=== PATIENT | male | born 2005 | race Caucasian/White ===

== ENCOUNTER 2024-03-11 17:11 | Emergency (ER) | payer SELFPAY ==
[2024-03-11 17:23] VITALS: BP 141/87; PULSE 98; RESP 16; TEMP 37.2; O2SAT 99
--- NOTE | 2024-03-11 18:20 | ED.EAR ---
HPI - Ear Problem General Chief complaint: Ear Stated complaint: Right Ear Irritation Time Seen by Provider: 03/11/24 17:54 Source: patient and RN notes reviewed Mode of arrival: ambulatory Limitations: no limitations History of Present Illness HPI Narrative: Patient presents today complaining of right ear muffling after swimming yesterday. Denies pain. Today decreased hearing in the left. He has used some [id number] drops without relief. Denies any sick symptoms. Related Data Allergies Allergy/AdvReac Type Severity Reaction Status Date / Time No Known Allergies Allergy Verified 03/11/24 17:25 Review of Systems Review of Systems: CONSTITUTIONAL: Denies body aches, fever, chills, or sweats. EYES: Denies visual changes, redness, or discharge. ENT: Denies rhinorrhea, congestion, sore throat, or otalgia. + bilateral decreased hearing CARDIOVASCULAR: Denies chest pain, palpitations, or edema. RESPIRATORY: Denies cough or dyspnea. GASTROINTESTINAL: Denies abdominal pain, nausea, vomiting, or diarrhea. GENITOURINARY: Denies dysuria or hematuria. SKIN: Denies rash, itching, or wounds. MUSCULOSKELETAL: Denies back pain, joint pain, or myalgia. NEUROLOGIC: Denies headache, numbness, tingling, or weakness. PSYCH: Denies depression or anxiety. PMFSH Comments At time of signature, I have reviewed and agree with nursing past medical, surgical, social and family history unless otherwise noted. Please see nursing chart for further information. There is no relevant family history pertinent to the presenting complaint Exam Narrative: GENERAL: Well-appearing, well-nourished, and in no acute distress. HEAD: Normocephalic, atraumatic. EYES: EOMI. No redness or drainage. Conjunctivae normal. ENT: Mucous membranes pink and moist. Nares clear. No rhinorrhea. Left TM normal with moderate amount of cerumen in the canal. Right TM occluded with large amount of soft cerumen in the canal. Canal appears normal. No movement or tragal tenderness. NECK: Normal AROM. CHEST: No respiratory distress. EXTREMITIES: Normal range of motion. No edema. SKIN: Warm, dry, no rash. Capillary refill normal. Normal skin turgor. NEURO: No focal deficits. Alert and oriented x3. Gait steady. PSYCH: Normal affect. No signs of depression or anxiety. Course Course Level of Care: Express Care Visit Vital Signs Vital signs: Vital Signs Temperature 99 F 03/11/24 17:23 Pulse Rate 98 03/11/24 17:23 Respiratory Rate 16 03/11/24 17:23 Blood Pressure 141/87 H 03/11/24 17:23 Pulse Oximetry 99 03/11/24 17:23 Oxygen Delivery Room Air 03/11/24 17:23 Temperature 99 F 03/11/24 17:23 Pulse Rate 98 03/11/24 17:23 Respiratory Rate 16 03/11/24 17:23 Blood Pressure 141/87 H 03/11/24 17:23 Pulse Oximetry 99 03/11/24 17:23 Oxygen Delivery Room Air 03/11/24 17:23 Reviewed Procedures Ear Wax Removal Right Ear: Ear Wax Removal Date: 03/11/24 Ear Wax Removal Time: 18:21 TM Examination: TM(s) intact, normal appearance Ear Canal Exam: atraumatic Patient Tolerated Procedure: well Complications: no problems Technique: ear canal irrigated Additional Comments: Irrigated with water and small amount of peroxide. Large amount of cerumen resulting. Small amount remains. Hearing restored. Medical Decision Making MDM Narrative Medical decision making narrative: Wax was flushed from the right ear canal and hearing was restored. Small amount of wax remains. Recommend Debrox drops to help soften it in flush out at home. Patient agrees with plan. Anticipatory guidance given. Differential Diagnosis Differential Diagnosis: Otitis media, otitis externa, ruptured TM, serous otitis, eustachian tube dysfunction, cerumen impaction Vital Signs Vital Signs: Vital Signs Temperature 99 F 03/11/24 17:23 Pulse Rate 98 03/11/24 17:23 Respiratory Rate 16
== END 2024-03-11 18:30 | disposition home or self-care (01) ==
PROVIDERS: Emergency Provider Nurse Practitioner
DX: H61.21 Impacted cerumen, right ear (principal)
CPT/HCPCS: 69209; 99212; A9270; G0463